=== PATIENT | female | born 1960 | race Caucasian/White ===

== ENCOUNTER 2016-11-06 19:39 | Emergency (ER) | payer OTHER ==
[~2016-11-06] VITALS: Ht 167.6 cm; Wt 53.1 kg
[~2016-11-06 19:39] MED LIST: DIVA500T2 PO; PHEN100C4 PO; [UNRECOGNIZED DRUG - CODE] PO
--- NOTE | 2016-11-06 19:40 | NUR ---
Note undone in EDM - 11/06/16 at 2041 by ESTEBAN TO BED 3 A 56 YO MALE BIBSELF W C/O "DIZZINESS/CP/SOB X2 DAYS." UPON ARRIVAL TO ER, PATIENT IS AAOX3, PATIENT ALSO COMPLAINTS OF GENERALIZED WEAKNESS. NAD NOTED. BREATHING EVEN AND UNLABORED. NONDIAPHORETIC. PLACED ON CARDIAC AND VS MONITORING. GOWNED. COMFORT MEAURES RENDERED. MICROFILM CLERK MARSII AT BEDSIDE TO [facility].
--- NOTE | 2016-11-06 19:57 | NUR ---
TO BED 1 A A 56 YO FEMALE BIBSELF AND REPORTS THAT SHE WAS "SENT BY DR. MICHEL FOR K OF 6.2" DENIES ANY CP, SOB, OR ANY DISCOMFORT. VSS. NAD NOTED. NONDIAPHORETIC. CARDIAC AND VS MONITORING ON. GOWNED. COMFORT MEASURES RENDERED. AWATIING FOR ER MD OWEN.
--- NOTE | 2016-11-06 19:58 | NUR ---
STARTED SALINE LOCK ON THE LEFT WRIST G20, BLOOD DRAWN AND SENT TO LAB.
--- NOTE | 2016-11-06 20:00 | NUR ---
DR KEYS AT BEDSIDE TO EVAL.
[2016-11-06 20:11] LABS: BASOPHILS # (AUTO) 0.4 /CMM (0.0-0.2); BASOPHILS % (AUTO) 4.3 % (0.0-2.0); EOSINOPHILS # (AUTO) 0.1 /CMM (0.0-0.7); EOSINOPHILS % (AUTO) 0.8 % (0.0-6.0); HEMATOCRIT 43 % (33-45); HEMOGLOBIN 14.7 g/dL (11.5-14.8); LYMPHOCYTES # (AUTO) 2.6 /CMM (0.8-4.8); LYMPHOCYTES % (AUTO) 26.6 % (20.0-44.0); MEAN CORPUSCULAR HEMOGLOBIN 32 PG (26.0-33.0); MEAN CORPUSCULAR HGB CONC 34 g/dl (31.0-36.0); MEAN CORPUSCULAR VOLUME 94 fL (82-100); MONOCYTES # (AUTO) 1.1 /CMM (0.1-1.30); MONOCYTES % (AUTO) 11.2 % (2.0-12.0); NEUTROPHILS # (AUTO) 5.4 /CMM (1.8-8.9); NEUTROPHILS % (AUTO) 57.1 % (43.0-81.0); PLATELET COUNT (AUTO) 102 /CMM (150-450); RDW COEFFICIENT OF VARIATION 12.9 (11.5-15.0); RED BLOOD CELL COUNT(AUTO) 4.62 MIL/uL (4.0-5.2); WHITE BLOOD COUNT (AUTO) 9.6 K/uL (4.3-11.0)
[2016-11-06 20:21] LABS: CALCIUM, SERUM 8.9 mg/dL (8.5-10.1); CREATININE 0.6 mg/dL (0.6-1.3); POTASSIUM 4.3 mmol/L (3.5-5.1)
--- NOTE | 2016-11-06 21:03 | NUR ---
IV removed. Catheter intact and site benign. Pressure and 4x4 applied to site. No bleeding noted. Patient discharged to home in stable condition. Written and verbal after care instructions given. Patient verbalizes understanding of instruction. Patient is ambulatory with steady gait, no further complaints.
[2016-11-06 21:04] VITALS: BP 99/64
== END 2016-11-06 21:05 | disposition home or self-care (01) ==
LOC: ER 19:42
DX: Z00.8 Encounter for other general examination (principal); R79.89 Other specified abnormal findings of blood chemistry; G40.909 Epilepsy, unspecified, not intractable, without status epilepticus; Z98.890 Other specified postprocedural states
CPT/HCPCS: 36415; 80048; 85025; 93005; 99285; A4606; Z7610

== ENCOUNTER 2020-06-29 19:15 | Emergency (ER) | payer OTHER ==
[~2020-06-29] VITALS: Ht 165.1 cm; Wt 54.4 kg
--- NOTE | 2020-06-29 19:39 | NUR ---
presented to the ER for c/o l shoulder pain s/p fall. denied hitting her head. denied KO. ambulatory to bed 9 ER. was placed on a monitor. VSS. will cont to monitor ,.
[2020-06-29] MEDS ORDERED: HYDROCODONE/APAP 5/325MG TABLET ONE (19:57)
[2020-06-29] MEDS ORDERED: ONDANSETRON 4 MG TAB.RAPDIS ONE (19:58)
[2020-06-29] MEDS ORDERED: HYDROCODONE/APAP 5/325MG TABLET PO ONE (20:00)
[2020-06-29] MEDS ORDERED: ONDANSETRON 4 MG TAB.RAPDIS SL ONE (20:00)
--- NOTE | 2020-06-29 20:15 | NUR ---
DR ENRIQUEZ AT BED SIDE
[2020-06-29] MEDS ORDERED: DICL50TA7 PO (20:34)
--- NOTE | 2020-06-29 20:47 | NUR ---
PT WAS PROVIDED W/ L ARM SLING. MEDICALLY STABLE FOR D/C. Patient discharged to home in stable condition. Written and verbal after care instructions given. Patient verbalizes understanding of instruction.
[2020-06-29 20:48] VITALS: BP 111/63
== END 2020-06-29 20:49 | disposition home or self-care (01) ==
LOC: ER 19:15
DX: S42.032A Displaced fracture of lateral end of left clavicle, initial encounter for closed fracture (principal); G40.909 Epilepsy, unspecified, not intractable, without status epilepticus; Z98.890 Other specified postprocedural states; Z79.899 Other long term (current) drug therapy; W18.39XA Other fall on same level, initial encounter; Y93.89 Activity, other specified; Y92.89 Other specified places as the place of occurrence of the external cause; Y99.8 Other external cause status
CPT/HCPCS: 73030; 99283; Q0162

== ENCOUNTER 2020-11-13 08:44 | Emergency (ER) | payer OTHER ==
[~2020-11-13] VITALS: Ht 167.6 cm; Wt 52.2 kg
[~2020-11-13 08:44] MED LIST changes: +DICL50TA7 PO
[2020-11-13 08:49] VITALS: BP 100/74
[2020-11-13] MEDS ORDERED: AMOX-430 PO (09:02)
[2020-11-13] MEDS ORDERED: IBUP-1955 PO (09:02)
--- NOTE | 2020-11-13 09:08 | NUR ---
Patient discharged to home in stable condition. Written and verbal after care instructions given. Patient verbalizes understanding of instruction.
--- NOTE | 2020-11-13 09:19 | NUR ---
Patient discharged to home in stable condition. Written and verbal after care instructions given. Patient verbalizes understanding of instruction.
== END 2020-11-13 09:19 | disposition home or self-care (01) ==
LOC: ER 08:53
DX: K04.7 Periapical abscess without sinus (principal); Z98.890 Other specified postprocedural states; Z79.899 Other long term (current) drug therapy

== ENCOUNTER → 2022-03-13 | Emergency (ER) | payer OTHER ==
[~2022-03-13] VITALS: Ht 167.6 cm; Wt 52.2 kg
[~2022-03-13] MED LIST changes: +AMOX-430 PO; +CT SWABBABLE VALVE TRANS SET 1 EA INFUS.SET MC ONE; +CYCL5TAB PO; +IBUP-1953 PO; +IBUP-1955 PO; +IOHEXOL-300 100 ML VIAL IV ONE; +IV NS 0.9% 250 ML IV ONE; +KETOROLAC TROMETHAMINE 15 MG/ML VIAL ONE; +KETOROLAC TROMETHAMINE INJ 30 MG/ML VIAL IV ONE; +LIDO30AD10 TP
--- NOTE | 2022-03-13 10:15 | NUR ---
BIBS C/O BACK PAIN SINCE WAKING UP THIS MONRING PAIN 10/28, DENIES ANY TRAUMA. PT AMBULATED TO BED WITH STEADY GAIT. BREATHING EVEN AND UNLABORED. PLACED ON MONITOR, VSS. AWAITING MD ORDERS.
--- NOTE | 2022-03-13 11:33 | NUR ---
DR. RYAN AT BEDSIDE.
--- NOTE | 2022-03-13 12:10 | NUR ---
ESTABLISHED IV 20G LEFT FOREARM. BLOOD DRAWN AND SENT TO LAB.
--- NOTE | 2022-03-13 12:11 | NUR ---
URINE SAMPLE COLLECTED AND SENT TO LAB.
[2022-03-13 12:43] LABS: CREATININE 0.6 mg/dL (0.6-1.3); POTASSIUM 3.7 mmol/L (3.5-5.1)
[2022-03-13 12:56] LABS: BILIRUBIN,URINE NEGATIVE (NEGATIVE); COLOR,URINE YELLOW (YELLOW); LEUKOCYTE ESTERASE ,URINE NEGATIVE (NEGATIVE); NITRITE, URINE NEGATIVE (NEGATIVE); PH,URINE 5.5 (5.0-8.0); PROTEIN,URINE NEGATIVE (NEGATIVE); UGLUCOSE NEGATIVE (NEGATIVE); UROBILINOGEN,URINE 0.2 EU/dL (0.2)
--- NOTE | 2022-03-13 13:10 | NUR ---
TAKEN TO CT
--- NOTE | 2022-03-13 13:17 | NUR ---
BACK FROM CT
[2022-03-13 14:18] LABS: BASOPHILS % (AUTO) 0.6 % (0.0-2.0); EOSINOPHILS % (AUTO) 0.5 % (0.0-6.0); HEMATOCRIT 45 % (33-45); HEMOGLOBIN 14.8 g/dL (11.5-14.8); LYMPHOCYTES # (AUTO) 2.2 K/uL (0.8-4.8); MEAN CORPUSCULAR HGB CONC 33 g/dl (31.0-36.0); MEAN CORPUSCULAR VOLUME 97 fL (82-100); MONOCYTES # (AUTO) 0.5 K/uL (0.1-1.30); MONOCYTES % (AUTO) 8.3 % (2.0-12.0); NEUTROPHILS # (AUTO) 3.4 K/uL (1.8-8.9); NEUTROPHILS % (AUTO) 54.6 % (43.0-81.0); PLATELET COUNT (AUTO) 140 K/uL (150-450); RED BLOOD CELL COUNT(AUTO) 4.59 MIL/uL (4.0-5.2); WHITE BLOOD COUNT (AUTO) 6.2 K/uL (4.3-11.0)
[2022-03-13 15:36] LABS: ALBUMIN 3.5 g/dL (3.4-5.0); BILIRUBIN,DIRECT 0.1 mg/dL (0.0-0.2); BILIRUBIN,TOTAL 0.3 mg/dL (0.2-1.0); TOTAL PROTEIN, SERUM 6.5 g/dL (6.4-8.2)
--- NOTE | 2022-03-13 16:22 | NUR ---
PT LEFT AGAINST MEDICAL ADVICE. MD EXPLAINED THE RISKS AND PT VERBALIZED UNDERSTANDING.
--- NOTE | 2022-03-13 16:23 | NUR ---
Patient discharged to home in stable condition. Written and verbal after care instructions given. Patient verbalizes understanding of instruction.IV removed. Catheter intact and site benign. Pressure and 4x4 applied to site. No bleeding noted.
[2022-03-13 16:26] VITALS: BP 142/60
== END | disposition left against medical advice (07) ==
LOC: ER 10:17
DX: M48.54XA Collapsed vertebra, not elsewhere classified, thoracic region, initial encounter for fracture (principal); K76.9 Liver disease, unspecified; M54.50 Low back pain, unspecified; Z79.899 Other long term (current) drug therapy
CPT/HCPCS: 99285; 72132; 96374; 74177; 85025; 80048; 80076; 81003; 36415; 82247 ×2; 82248; J7050; Q9967 ×2; J1885

== ENCOUNTER 2022-07-15 16:47 | Emergency (ER) | payer OTHER ==
[~2022-07-15] VITALS: Ht 167.6 cm; Wt 59.9 kg
[~2022-07-15 16:47] MED LIST changes: -CT SWABBABLE VALVE TRANS SET 1 EA INFUS.SET MC ONE; -IOHEXOL-300 100 ML VIAL IV ONE; -IV NS 0.9% 250 ML IV ONE; -KETOROLAC TROMETHAMINE 15 MG/ML VIAL ONE; -KETOROLAC TROMETHAMINE INJ 30 MG/ML VIAL IV ONE
[2022-07-15 17:05] VITALS: BP 123/56
[2022-07-15] MEDS ORDERED: AZIT500T PO (17:58)
== END 2022-07-15 18:07 | disposition home or self-care (01) ==
LOC: ER 16:58
DX: J02.9 Acute pharyngitis, unspecified (principal); Z60.2 Problems related to living alone; Z79.899 Other long term (current) drug therapy; Z98.890 Other specified postprocedural states